=== PATIENT | female | born 1975 | race Caucasian/White ===

== ENCOUNTER 2023-08-18 22:58 | Emergency (ER) | payer BC ==
[~2023-08-18] VITALS: Ht 154.9 cm; Wt 48.6 kg
[2023-08-18 23:27] LABS: BASOPHILS # (AUTO) 0.2 K/UL (0.0-0.2); BASOPHILS % (AUTO) 1.9 % (0.0-2.0); EOSINOPHILS # (AUTO) 0.1 K/uL (0.0-0.7); EOSINOPHILS % (AUTO) 1.4 % (0.0-7.0); HEMATOCRIT 40.6 % (31.2-41.9); HEMOGLOBIN 13.4 g/dL (10.9-14.3); LYMPHOCYTES % (AUTO) 11.3 % (20.5-51.5); MEAN CORPUSCULAR HGB CONC 33 g/dL (32.3-35.6); MEAN CORPUSCULAR VOLUME 87.8 fL (75.5-95.3); MONOCYTES # (AUTO) 0.6 K/uL (0.1-1.30); MONOCYTES % (AUTO) 7.1 % (0.0-11.0); NEUTROPHILS # (AUTO) 6.8 K/uL (1.8-8.9); NEUTROPHILS % (AUTO) 78.3 % (38.5-71.5); PLATELET COUNT (AUTO) 341 K/uL (179-408); RED BLOOD CELL COUNT(AUTO) 4.62 MIL/uL (3.63-4.92); RED CELL DISTRIBUTION WIDTH 13.9 % (12.3-17.7); WHITE BLOOD COUNT (AUTO) 8.7 K/uL (3.8-11.8)
[2023-08-18 23:30] LABS: DIFFERENTIAL COMMENT 1
[2023-08-18] MEDS: IV NS 1000 ML 1,000 ML IV ONE (23:33)
[2023-08-18 23:37] LABS: CALCIUM 8.9 mg/dL (8.5-10.1); CREATININE 0.9 mg/dL (0.6-1.3); POTASSIUM 4.2 mmol/L (3.5-5.1)
[2023-08-18 23:42] LABS: ALBUMIN 3.7 g/dL (3.4-5.0); BILIRUBIN,TOTAL 0.5 mg/dL (0.2-1.0); TOTAL PROTEIN, SERUM 7.8 g/dL (6.4-8.2)
[2023-08-18 23:51] LABS: *BILIRUBIN,URIN NEGATIVE (NEGATIVE); *BLOOD, URINE NEGATIVE (NEGATIVE); *CLARITY,URINE CLEAR (CLEAR); *COLOR,URINE YELLOW (YELLOW); *KETONES,URINE NEGATIVE (NEGATIVE); *PROTEIN,URINE NEGATIVE (NEGATIVE); *UROBILINOGEN,URINE 0.2 E.U./dl (NORMAL); LEUKOCYTE ESTERASE ,URINE NEGATIVE (NEGATIVE); NITRITE, URINE NEGATIVE (NEGATIVE); UGLUCOSE NEGATIVE (NEGATIVE)
[2023-08-18 23:59] LABS: *URINE HCG, QUAL NEGATIVE (NEGATIVE)
[2023-08-19 01:08] VITALS: BP 149/97; O2SAT 99
== END 2023-08-19 01:10 | disposition home or self-care (01) ==
LOC: ER 23:01
DX: U07.1 COVID-19 (principal); G43.909 Migraine, unspecified, not intractable, without status migrainosus; E78.5 Hyperlipidemia, unspecified; R10.2 Pelvic and perineal pain
CPT/HCPCS: 99283; 96360; 87426; 87804 ×2; 80053; 81003; 84703; 85025; 36415; 83605; J7040; A4606; A4663

== ENCOUNTER 2023-11-12 12:04 | Emergency (ER) | payer BC ==
[~2023-11-12] VITALS: Ht 152.4 cm; Wt 49.0 kg
[2023-11-12 15:48] LABS: *URINE HCG, QUAL NEGATIVE (NEGATIVE)
[2023-11-12 17:08] VITALS: BP 138/85; TEMP 98; O2SAT 99
== END 2023-11-12 17:09 | disposition home or self-care (01) ==
LOC: ER 12:04
DX: M79.18 Myalgia, other site (principal); R10.2 Pelvic and perineal pain; E78.5 Hyperlipidemia, unspecified; G43.909 Migraine, unspecified, not intractable, without status migrainosus
CPT/HCPCS: 84703; A4606; A4663

== ENCOUNTER 2024-11-15 05:55 | Day surgery (SDC) | payer BC ==
[2024-11-15 07:11] LABS: *URINE HCG, QUAL NEGATIVE (NEGATIVE)
[2024-11-15] MEDS ORDERED: LIDOCAINE-MPF 2% 5 ML VIAL ONE (07:45)
[2024-11-15] MEDS ORDERED: GLYCOPYRROLATE 0.2 MG/ML VIAL ONE ×2 (07:45)
[2024-11-15] MEDS ORDERED: PROPOFOL 200 MG/20 ML BOTTLE ONE ×3 (07:45)
[2024-11-15] MEDS ORDERED: LIDOCAINE HCL 2% 5 ML JELLY ONE (07:55)
[2024-11-15 09:45] VITALS: BP 135/85; TEMP 97.6
== END 2024-11-15 09:53 | disposition home or self-care (01) ==
LOC: SURGERY 05:55
PROVIDERS: ATTEND Surgery
DX: R19.4 Change in bowel habit (principal); K64.8 Other hemorrhoids; K63.89 Other specified diseases of intestine; K21.9 Gastro-esophageal reflux disease without esophagitis; M19.90 Unspecified osteoarthritis, unspecified site; Z86.0100 Personal history of colon polyps, unspecified; Z79.899 Other long term (current) drug therapy; Z98.890 Other specified postprocedural states
CPT/HCPCS: 45380; 84703; 88305; J3490; A4663

== ENCOUNTER 2024-11-17 08:17 | Emergency (ER) | payer BC ==
[~2024-11-17] VITALS: Ht 154.9 cm; Wt 50.3 kg
[2024-11-17 09:38] LABS: PLATELET COUNT (AUTO) 359 K/uL (179-408); RED BLOOD CELL COUNT(AUTO) 4.58 MIL/uL (3.63-4.92); RED CELL DISTRIBUTION WIDTH 13.6 % (12.3-17.7); WHITE BLOOD COUNT (AUTO) 5.0 K/uL (3.8-11.8)
[2024-11-17 09:40] LABS: *BILIRUBIN,URIN NEGATIVE (NEGATIVE); *BLOOD, URINE NEGATIVE (NEGATIVE); *CLARITY,URINE CLEAR (CLEAR); *COLOR,URINE YELLOW (YELLOW); *KETONES,URINE NEGATIVE (NEGATIVE); *PROTEIN,URINE NEGATIVE (NEGATIVE); *UROBILINOGEN,URINE 0.2 E.U./dl (NORMAL); LEUKOCYTE ESTERASE ,URINE NEGATIVE (NEGATIVE); NITRITE, URINE NEGATIVE (NEGATIVE); UGLUCOSE NEGATIVE (NEGATIVE)
[2024-11-17 09:44] LABS: CREATININE 0.6 mg/dL (0.6-1.3); SODIUM SERUM 138.0 mmol/L (136-145); UREA NITROGEN, BLOOD 7.0 mg/dL (7-18)
[2024-11-17 09:45] LABS: *URINE HCG, QUAL NEGATIVE (NEGATIVE)
[2024-11-17] MEDS ORDERED: POTASSIUM BICARBONATE/CIT AC 25 MEQ TABLET.EFF ONE (10:04)
[2024-11-17] MEDS: POTASSIUM BICARBONATE/CIT AC 25 MEQ TABLET.EFF PO ONE (10:08)
[2024-11-17] MEDS ORDERED: IV NORMAL SALINE 250 ML IV ONE (10:24)
[2024-11-17] MEDS ORDERED: IOHEXOL 300MG/ML 100 ML INFUS..BTL ONE (10:24)
[2024-11-17] MEDS ORDERED: SWABABLE VALVE TRANSFER SET EA MC ONE (10:24)
[2024-11-17 12:01] VITALS: BP 146/94
[2024-11-17] MEDS ORDERED: OXYC-128 PO (12:44)
[2024-11-17] MEDS ORDERED: POTA20TA29 PO (12:50)
[2024-11-17 13:17] VITALS: BP 146/94; TEMP 98.3; O2SAT 100
== END 2024-11-17 13:19 | disposition home or self-care (01) ==
LOC: ER 08:17
DX: R10.22 Pelvic and perineal pain left side (principal); R10.32 Left lower quadrant pain; E87.6 Hypokalemia; E78.5 Hyperlipidemia, unspecified; G89.29 Other chronic pain; I10 Essential (primary) hypertension; G43.909 Migraine, unspecified, not intractable, without status migrainosus; K21.9 Gastro-esophageal reflux disease without esophagitis; M41.9 Scoliosis, unspecified; Z86.16 Personal history of COVID-19; Z87.19 Personal history of other diseases of the digestive system
CPT/HCPCS: 99285; 74177; 80048; 81003; 84703; 85025; 86140; 36415; 82378; Q9967; A4606; A4663